=== PATIENT | female | born 1975 | race Caucasian/White ===

== ENCOUNTER → 2017-03-29 | Outpatient (CLI) | payer OTHER | LOC: LAB 10:58 | DX: Z13.6 Encounter for screening for cardiovascular disorders (principal); Z13.1 Encounter for screening for diabetes mellitus; Z83.3 Family history of diabetes mellitus; Z82.49 Family history of ischemic heart disease and other diseases of the circulatory system ==

== ENCOUNTER → 2017-03-30 | Outpatient (CLI) | payer OTHER | LOC: LAB 16:33 | DX: N89.8 Other specified noninflammatory disorders of vagina (principal) | CPT/HCPCS: Q0111 ==

== ENCOUNTER → 2017-07-07 | Outpatient (CLI) | payer OTHER | LOC: MAMMO 08:25 → RAD 08:30 | DX: Z12.31 Encounter for screening mammogram for malignant neoplasm of breast (principal); R92.8 Other abnormal and inconclusive findings on diagnostic imaging of breast; Z88.2 Allergy status to sulfonamides | CPT/HCPCS: G0202 ==

== ENCOUNTER → 2017-08-08 | Outpatient (CLI) | payer OTHER | LOC: MAMMO 07:12 | DX: R92.8 Other abnormal and inconclusive findings on diagnostic imaging of breast (principal); Z88.2 Allergy status to sulfonamides ==

== ENCOUNTER → 2023-07-08 | Outpatient (CLI) | payer BC | LOC: RAD 13:04 | DX: M54.50 Low back pain, unspecified (principal) ==

== ENCOUNTER → 2023-07-14 | Outpatient (CLI) | payer BC | LOC: RAD 14:59 | DX: M47.816 Spondylosis without myelopathy or radiculopathy, lumbar region (principal); M47.817 Spondylosis without myelopathy or radiculopathy, lumbosacral region ==